=== PATIENT | male | born 1985 | race Caucasian/White ===

== ENCOUNTER 2017-06-27 03:47 | Emergency (ER) | payer OTHER ==
[2017-06-27] MEDS ORDERED: ASPIRIN 81 MG TABLET, CHEWABLE PO ONE (04:07)
[2017-06-27 04:46] LABS: ABSOLUTE BASOPHILS # (AUTO) 0.1 10^3/uL (0.0-0.2); ABSOLUTE EOSINOPHILS # (AUTO) 0.1 10^3/uL (0.0-0.6); ABSOLUTE LYMPHOCYTES (AUTO) 2.2 10^3/uL (0.5-4.7); ABSOLUTE MONOCYTES (AUTO) 0.6 10^3/uL (0.1-1.4); BASOPHILS % (AUTO) 1.1 % (0-2); EOSINOPHILS % (AUTO) 1.9 % (0-6); HEMATOCRIT 41.4 % (37.9-51.0); HEMOGLOBIN 14.7 g/dL (13.5-17.0); HGB HCT DIFFERENCE 2.7; LYMPHOCYTES % (AUTO) 31.4 % (13-45); MEAN CORPUSCULAR HGB CONC 35.6 g/dL (32.0-36.0); MEAN CORPUSCULAR VOLUME 87 fl (80-97); MONOCYTES % (AUTO) 8.3 % (3-13); RED BLOOD COUNT 4.75 10^6/uL (4.35-5.55); RED CELL DISTRIBUTION WIDTH 13.1 % (11.5-14.0); SEGMENTED NEUTROPHILS % (AUTO) 57.3 % (42-78); WHITE BLOOD COUNT 6.9 10^3/uL (4.0-10.5)
[2017-06-27 04:50] LABS: ALANINE AMINOTRANSFERASE 39 U/L (21-72); ALKALINE PHOSPHATASE 65 U/L (38-126); ANION GAP 13 (5-19); ASPARTATE AMINO TRANSFERASE 33 U/L (17-59); BILIRUBIN,DIRECT 0.4 mg/dL (0.0-0.4); BILIRUBIN,TOTAL 0.6 mg/dL (0.2-1.3); BLOOD UREA NITROGEN 16 mg/dL (7-20); CALCIUM 9.4 mg/dL (8.4-10.2); CARBON DIOXIDE 24 mmol/L (22-30); CHLORIDE 106 mmol/L (98-107); CREATINE KINASE 128 U/L (55-170); CREATININE RESULT 0.85 mg/dL (0.52-1.25); GLUCOSE 139 mg/dL (75-110); POTASSIUM 3.9 mmol/L (3.6-5.0); SODIUM 142.7 mmol/L (137-145); TOTAL PROTEIN 6.8 g/dL (6.3-8.2)
--- NOTE | 2017-06-27 04:56 | RADIOLOGY REPORT (SQ) ---
EXAM DESCRIPTION: CHEST SINGLE VIEW CLINICAL HISTORY: 31 years, Male, CP COMPARISON: None. NUMBER OF VIEWS: 1 TECHNIQUE: Routine radiographic technique. LIMITATIONS: None. FINDINGS: Cardiac size and pulmonary vasculature are normal. Lungs are clear. No pleural effusions or pneumothorax. Bones are grossly normal on this single view. No free peritoneal gas under the hemidiaphragms. IMPRESSION: Normal portable AP chest radiograph. 2010 [employer]- All Rights Reserved
[2017-06-27 05:07] LABS: CREATINE KINASE MB 0.34 ng/mL (<4.55)
[2017-06-27 05:08] LABS: TROPONIN I < 0.012 ng/mL
--- NOTE | 2017-06-27 05:36 | ER Document Report ---
ED General - General Chief Complaint: Chest Pain > 30 Stated Complaint: CHEST PAIN Time Seen by Provider: 06/27/17 04:27 Notes: Patient is a 31-year-old male who comes emergency department for chief complaint of pain in his chest. He states he woke up and start, he states he had sweat on him, and he states he felt uncomfortable in his chest. He states he feels less uncomfortable now than before but it has not gone away. He denies injury, shortness of breath, vomiting, history of the same. He denies smoking, drinks rarely, denies any recreational drugs including cocaine. He denies any personal or family history of heart disease, blood clot. He denies any lower extremity swelling, recent travel, recent surgery. He denies cough or fever. He denies abdominal pain. He takes no daily medications. TRAVEL OUTSIDE OF THE [place] IN LAST 30 DAYS: No Past Medical History - General Information source: Patient - Social History Smoking Status: Never Smoker Drug Abuse: None Lives with: Family Family History: Reviewed & Not Pertinent Patient has suicidal ideation: No Patient has homicidal ideation: No Renal/ Medical History: Denies: Hx Peritoneal Dialysis GI Medical History: Reports: Hx Gastroesophageal Reflux Disease Surgical Hx: Negative Review of Systems - Review of Systems Constitutional: See HPI EENT: No symptoms reported Cardiovascular: See HPI Respiratory: See HPI Gastrointestinal: See HPI Genitourinary: No symptoms reported Male Genitourinary: No symptoms reported Musculoskeletal: See HPI Skin: No symptoms reported Hematologic/Lymphatic: No symptoms reported Neurological/Psychological: No symptoms reported Physical Exam - Vital signs Vitals: Temp Pulse Resp BP Pulse Ox 98.2 F 91 18 122/78 97 06/27/17 04:05 06/27/17 04:05 06/27/17 04:05 06/27/17 04:05 06/27/17 04:05 Interpretation: Normal - General General appearance: Appears well, Alert In distress: None - HEENT Head: Normocephalic, Atraumatic Eyes: Normal Pupils: PERRL - Respiratory Respiratory status: No respiratory distress Chest status: Tender - There is mild reproducible tenderness over the left anterior chest wall at the fourth intercostal space and slightly around this. No erythema, swelling, ecchymosis Breath sounds: Normal Chest palpation: Normal - Cardiovascular Rhythm: Regular Heart sounds: Normal auscultation Murmur: No - Abdominal Inspection: Normal Distension: No distension Bowel sounds: Normal Tenderness: Nontender Organomegaly: No organomegaly - Back Back: Normal, Nontender - Extremities General upper extremity: Normal inspection, Nontender, Normal color, Normal ROM , Normal temperature General lower extremity: Normal inspection, Nontender, Normal color, Normal ROM , Normal temperature, Normal weight bearing. No: Romel's sign - Neurological Neuro grossly intact: Yes Cognition: Normal Orientation: AAOx4 Charlie Coma Scale Eye Opening: Spontaneous Charlie Coma Scale Verbal: Oriented Charlie Coma Scale Motor: Obeys Commands Charlie Coma Scale Total: 15 Speech: Normal Motor strength normal: LUE, RUE, LLE, RLE Sensory: Normal - Psychological Associated symptoms: Normal affect, Normal mood - Skin Skin Temperature: Warm Skin Moisture: Dry Skin Color: Normal Course - Re-evaluation Re-evalutation: Patient does have some tenderness over his anterior chest wall on examination which is reproducible and not severe. Otherwise unremarkable exam in a well- appearing patient. Unremarkable vital signs. EKG sinus rhythm with no T-wave inversions or ST segment changes in consecutive leads. Chest x-ray unremarkable. Lab work unremarkable. On reexamination any pain in his chest any longer but he states he has "some heartburn". He was given aspirin. Heart score of 0. I have very low suspicion of ACS, pulmonary embolism, aortic dissection. Patient actually sounds like he has sleep apnea, I asked him about this morning he states he frequently wakes up and starts gasping or feeling discomfort. Referred to primary care for polysomnography, providing with naproxen for his chest wall, Zantac for his heartburn, discussed findings in detail, discussed return precautions in detail, patient states understanding and agreement. - Vital Signs Vital signs: Temp Pulse Resp BP Pulse Ox 98.2 F 91 21 H 132/85 H 99 06/27/17 04:05 06/27/17 04:05 06/27/17 06:34 06/27/17 06:34 06/27/17 06:34 - Laboratory Result Diagrams: 06/27/17 04:25 06/27/17 04:25 Laboratory results interpreted by me: 06/27/17 04:25 Glucose 139 H Discharge - Discharge Clinical Impression: Chest wall pain Chest pain Qualifiers: Chest pain type: unspecified Qualified Code(s): R07.9 - Chest pain, unspecified Condition: Stable Disposition: HOME, SELF-CARE Additional Instructions: No concerning abnormalities are seen on your workup today. You do have some chest wall pain, I recommend applying heat to the area, taking the naproxen as prescribed, take the Zantac with this to avoid any worsening gastrointestinal symptoms. Because of your symptoms suggestive of sleep apnea I recommend following up with primary care referral and having polysomnography testing. Please return to the emergency department if you worsen in any way including difficulty breathing, severe pain, vomiting, black bowel movements, or any other concerning symptoms. Prescriptions: Naproxen [Naprosyn 375 Mg Tablet] 375 mg PO BID #20 tablet Ranitidine HCl [Zantac 150 mg Tablet] 150 mg PO BID #20 tablet Forms: Return to Work Referrals: ROLF CASTILLO MD [ACTIVE STAFF] - Follow up as needed
[2017-06-27 06:38] VITALS: BP 132/85
--- NOTE | 2017-06-27 08:03 | EKG REPORT ---
SEVERITY:- NORMAL ECG - SINUS RHYTHM : Confirmed by: Drake Huang MD 27-Jun-2017 08:02:58
== END 2017-06-27 06:38 | disposition home or self-care (01) ==
LOC: ER 03:47
DX: R07.89 Other chest pain (principal); R12 Heartburn
CPT/HCPCS: 36415; 71010; 80053; 82550; 82553; 84484; 85025; 93005; 93010; 99285